=== PATIENT | female | born 1940 | race Caucasian/White ===

== ENCOUNTER 2023-01-26 14:36 | Emergency (ER) | payer MEDICARE, SELFPAY ==
--- NOTE | ~2023-01-26 | XR_ITS ---
EXAMINATION: XR knee LT min 4V DATE: 01/26/2023 15:37 INDICATION: Left knee pain. Fall. TECHNIQUE: 5 views of left knee were obtained. COMPARISON: None. FINDINGS: Bone alignment is normal. No fracture. There is moderate osteoarthritis of medial compartme nt and mild osteoarthritis of lateral and patellofemoral compartments. 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 IMPRESSION: 1. Large lipohemarthrosis. No fracture site identified. 2. Moderate left knee osteoarthritis. Reviewed, dictated and finalized at location E.
[2023-01-26 14:48] VITALS: BP 126/68; PULSE 70; RESP 20; TEMP 36.4; O2SAT 100
[2023-01-26] MEDS: ONDANSETRON HCL ODT 4 MG TABLET PO (15:12)
[2023-01-26] MEDS: KETOROLAC (*BKC) 60 MG/2 ML VIAL 30 MG IM (15:13)
--- NOTE | 2023-01-26 15:29 | ED.GENADULT ---
HPI - General Adult General Chief complaint: Extremity Injury, Lower Stated complaint: left knee inj Source: patient and family Mode of arrival: ambulatory Limitations: no limitations History of Present Illness HPI narrative: Patient presents for evaluation after sustaining a fall just prior to arrival. She indicates she was stepping off a neighbor's deck when she tripped and landed on her knees. She did not hit her head. No loss of consciousness. She now has pain in her right knee, left knee, left forearm. Pain in the left forearm and right knee are extremely mild, rated 1/10 in severity. Pain in left knee is 8/10 in severity. She has associated swelling and an overlying abrasion. She is having difficulty with weightbearing. She has osteopenia for which she takes vitamin d. no radicular component. No paresthesias. Movement makes her pain worse. Last tetanus four years ago. She is not diabetic. Related Data Home Medications Medication Instructions Recorded Confirmed alprazolam 0.5 mg tablet 0.5 mg PO DIRECTED 01/26/23 01/26/23 amlodipine 10 mg tablet 10 mg PO DIRECTED 01/26/23 01/26/23 atorvastatin 10 mg tablet 10 mg PO DIRECTED 01/26/23 01/26/23 buspirone 5 mg tablet 5 mg PO DIRECTED 01/26/23 01/26/23 esomeprazole magnesium 40 mg 40 mg PO DIRECTED 01/26/23 01/26/23 capsule,delayed release lisinopril 30 mg tablet 30 mg PO DIRECTED 01/26/23 01/26/23 metoprolol succinate 25 mg 25 mg PO DIRECTED 01/26/23 01/26/23 tablet,extended release 24 hr sertraline 50 mg tablet 50 mg PO DIRECTED 01/26/23 01/26/23 trazodone 50 mg tablet 50 mg PO DIRECTED 01/26/23 01/26/23 Allergies Allergy/AdvReac Type Severity Reaction Status Date / Time meperidine [From Demerol] Allergy Unknown Verified 01/26/23 15:02 Penicillins Allergy Hives Verified 01/26/23 15:02 Review of Systems Review of Systems: CONSTITUTIONAL: Denies fever, chills, or sweats. EYES: Denies visual changes, redness, or discharge. ENT: Denies rhinorrhea, congestion, sore throat, or otalgia. CARDIOVASCULAR: Denies chest pain, palpitations, or edema. RESPIRATORY: Denies cough or dyspnea. GASTROINTESTINAL: Denies abdominal pain, nausea, vomiting, or diarrhea. GENITOURINARY: Denies dysuria or hematuria. SKIN: Reports abrasions to the anterior aspect the left knee. Reports abrasion to the proximal left forearm. Denies rash or itching. MUSCULOSKELETAL: Reports pain in the proximal left forearm, and bilateral knees. Reports swelling in the left knee. NEUROLOGIC: Denies headache, numbness, dizziness, or weakness. PSYCHIATRIC: Denies anxiety or depression. [facility] Past Medical History Medical History (Updated 01/26/23 @ 16:08 by Lester Quiroz, [employer], ) Hypertension Osteopenia Surgical History Surgical History No pertinent past surgical history Family History Family History Mother Family history non-contributory Social History Social History Smoking status: Never smoker Alcohol intake: never Substance use: never Living arrangements: with family Gender identity (if verbalized by the patient): Female Sexual Orientation (if Verbalized by the Patient): Straight or Heterosexual Spiritual care concerns: No Exam Narrative: GENERAL: Well-appearing, well-nourished, and in no acute distress. HEAD: Normocephalic, atraumatic. EYES: PERRLA and EOMI. ENT: Nares clear, no rhinorrhea or epistaxis. Mucous membranes moist. Oropharynx without tonsillar hypertrophy exudate or other lesions. Bilateral TMs pearly powers nonbulging NECK: Supple. No adenopathy or masses. No carotid bruits or JVD CHEST: Clear to auscultation. No respiratory distress. No wheezes rales or rhonchi HEART: Regular rate and rhythm. No murmur heard. Normal peripheral pulses
== END 2023-01-26 16:10 | disposition short-term general hospital (02) ==
PROVIDERS: Emergency Provider Nurse Practitioner; PCP Family Medicine
DX: M25.062 Hemarthrosis, left knee (principal); I10 Essential (primary) hypertension; M85.80 Other specified disorders of bone density and structure, unspecified site
CPT/HCPCS: 73564; 96372; 99213; A9270; G0463; J1885